=== PATIENT | female | born 1960 | race Caucasian/White ===

== ENCOUNTER 2021-02-17 09:14 | Emergency (ER) | payer OTHER, SELFPAY ==
--- NOTE | 2021-02-17 09:21 | ED.DENTAL ---
HPI - Dental/Oral General Chief complaint: Dental/Oral Stated complaint: Abscessed tooth Time Seen by Provider: 02/17/21 09:21 Source: patient and RN notes reviewed History of Present Illness HPI Narrative: Patient is 60-year-old female who presents the urgent care with complaints of left lower jaw swelling/dental pain. Patient states that she has noticed the pain off and on for approximately 1 week and woke up with the swelling this morning. Patient states that she has not had any fever, chills, nausea, vomiting. States that she has not taken anything [id number] for her symptoms. Patient has a poor dental health and has not seen a dentist in many years. No other acute complaints. No acute distress noted. Patient aware of the plan of care. Some parts of this dictation were generated by voice recognition software and may contain typographical and/or grammatical inaccuracies. Related Data Home Medications Medication Instructions Recorded Confirmed amlodipine 10 mg PO DAILY 02/17/21 02/17/21 atorvastatin 80 mg PO DAILY 02/17/21 02/17/21 bupropion HCl 150 mg PO QAM 02/17/21 02/17/21 buspirone 30 mg PO BID 02/17/21 02/17/21 carvedilol 25 mg PO BID 02/17/21 02/17/21 levothyroxine [Euthyrox] 25 mcg PO DAILY 02/17/21 02/17/21 mirtazapine 7.5 mg PO DAILY 02/17/21 02/17/21 prazosin 2 mg PO HS 02/17/21 02/17/21 Allergies Allergy/AdvReac Type Severity Reaction Status Date / Time No Known Allergies Allergy Verified 02/17/21 09:30 Review of Systems Review of Systems: CONSTITUTIONAL: Denies fever, chills, or sweats. EYES: Denies visual changes, redness, or discharge. ENT: Denies rhinorrhea, congestion, sore throat, or otalgia. Reports of left lower jaw swelling and left lower dental pain CARDIOVASCULAR: Denies chest pain, palpitations, or edema. RESPIRATORY: Denies cough or dyspnea. GASTROINTESTINAL: Denies abdominal pain, nausea, vomiting, or diarrhea. GENITOURINARY: Denies dysuria or hematuria. SKIN: Denies rash or itching. MUSCULOSKELETAL: Denies back pain, joint pain, or myalgia. NEUROLOGIC: Denies headache, numbness, or weakness. All other systems reviewed are negative, except as documented in HPI. PMFSH Comments At the time of my signature, I reviewed and agree with the nursing past medical, surgical, social, and family history. There is no relevant family history pertinent to the patient complaint. Exam Narrative: GENERAL: This is a well-nourished, well-developed patient, in no apparent distress. HEAD: normocephalic, atraumatic. EYES: PERRL. Sclera clear/white. Vision is grossly intact. EARS: External ears normal NOSE: External nose normal with no obvious nasal discharge, nares without redness, no rhinorrhea. THROAT: Mucous membranes moist, posterior pharynx clear. DENTAL: Very poor dental hygiene. Many carious lesions and avulsed teeth at the gumline. Missing dentition throughout. Moderate left lower jaw edema with notable erythema and edema to the left lower quadrant surrounding avulsed dentition. NECK: Neck supple CARDIOVASCULAR: Regular rate and rhythm without murmurs, gallops, or rubs. RESPIRATORY: Clear to auscultation. Breath sounds equal bilaterally. No wheezes, rales, or rhonchi. SKIN: warm, intact with no suspicious lesions or rash, good texture and turgor. NEURO: awake, alert, and oriented to person, place and time. There were no obvious focal neurologic abnormalities. EXTREMITIES: No clubbing, cyanosis, or edema. Course Vital Signs Vital signs: Vital Signs Temperature 98.3 F 02/17/21 09:26 Pulse Rate 105 H 02/17/21 09:26 Respiratory Rate 20 02/17/21 09:26 Blood Pressure 179/117 H 02/17/21 09:26 Pulse Oximetry 98 02/17/21 09:26 Temperature 98.3 F 02/17/21 09:26 Pulse Rate 105 H 02/17/21 09:26 Respiratory Rate 20 02/17/21 09:26 Blood Pressure 179/117 H 02/17/21 09:26 Pulse Oximetry 98 02/17/21 09:26 Reviewed-patient is informed that they may have pre-hypertensi
[2021-02-17 09:26] VITALS: BP 179/117; PULSE 105; RESP 20; TEMP 36.8; O2SAT 98
== END 2021-02-17 09:43 | disposition home or self-care (01) ==
PROVIDERS: Emergency Provider Nurse Practitioner Family; PCP Nurse Practitioner Family
DX: K04.7 Periapical abscess without sinus (principal); E78.00 Pure hypercholesterolemia, unspecified; I10 Essential (primary) hypertension; E03.9 Hypothyroidism, unspecified; F41.9 Anxiety disorder, unspecified; F32.A Depression, unspecified; F43.10 Post-traumatic stress disorder, unspecified; X58.XXXA Exposure to other specified factors, initial encounter
CPT/HCPCS: 99213; G0463

== ENCOUNTER 2022-08-21 15:39 | Emergency (ER) | payer OTHER, SELFPAY ==
--- NOTE | ~2022-08-21 | XR_ITS ---
EXAMINATION: XR knee LT min 4V DATE: 08/21/2022 16:37 INDICATION: Generalized left knee pain TECHNIQUE: Anteroposterior, 2 oblique and crosstable lateral views of the left knee were obtained COMPARISON: None. FINDINGS: Alignment is normal. No fracture. No joint effusion/layering lipohemarthrosis. Nonspecific mild subc utaneous edema anterior to the left knee and proximal calf. IMPRESSION: 1. No left knee joint effusion or osseous abnormality. Reviewed, dictated and finalized at location A.
[2022-08-21 16:02] VITALS: BP 130/95; PULSE 88; RESP 18; TEMP 36.8; O2SAT 96
--- NOTE | 2022-08-21 16:21 | PC.NURSE ---
Pt complaining of pain and swelling to left knee, swelling down leg with pitting edema of +2, pt also states she has a little pain on her right knee, also has pitting edema of + 1 to the right leg, denies any other symptoms, no injuries.
--- NOTE | 2022-08-21 16:30 | ED.GENADULT ---
HPI - General Adult General Chief complaint: Extremity Injury, Lower Stated complaint: Left Knee/Leg Pain Source: patient Mode of arrival: ambulatory Limitations: no limitations History of Present Illness HPI narrative: Patient presents for evaluation of pain in the left knee for the last 3 days. She cannot identify any recent injury. She states she does go up and down steps frequently at home. She went to sit down in her living room when she first experienced the pain. Pain has been fairly constant since that time. She rates the pain 3/10 severity. She feels that in the medial anterior aspect of the left knee in the posterior aspect of the knee as well. She states her left lower leg has been swollen. She denies any calf pain. She is not on exogenous estrogen. No personal history of DVT or PE. She does smoke approximately 10 cigarettes per day. She is not taking any medication to assist with her pain Related Data Home Medications Medication Instructions Recorded Confirmed amlodipine 10 mg tablet 10 mg PO DAILY 02/17/21 08/21/22 atorvastatin 80 mg tablet 80 mg PO DAILY 02/17/21 08/21/22 bupropion HCl 150 mg 24 hr tablet, 150 mg PO QAM 02/17/21 08/21/22 extended release buspirone 30 mg tablet 30 mg PO BID 02/17/21 08/21/22 carvedilol 25 mg tablet 25 mg PO BID 02/17/21 08/21/22 levothyroxine 25 mcg tablet 25 mcg PO DAILY 02/17/21 08/21/22 (Euthyrox) mirtazapine 7.5 mg tablet 7.5 mg PO DAILY 02/17/21 08/21/22 prazosin 2 mg capsule 2 mg PO HS 02/17/21 08/21/22 amlodipine 10 mg tablet 10 mg BID 08/21/22 08/21/22 aspirin 325 mg tablet 325 mg PO DAILY 08/21/22 08/21/22 fluoxetine 08/21/22 08/21/22 hydroxyzine pamoate 08/21/22 levothyroxine 100 mcg capsule 100 mcg PO DAILY 08/21/22 08/21/22 lisinopril 08/21/22 Allergies Allergy/AdvReac Type Severity Reaction Status Date / Time No Known Allergies Allergy Verified 08/21/22 16:09 Review of Systems Review of Systems: CONSTITUTIONAL: Denies fever, chills, or sweats. EYES: Denies visual changes, redness, or discharge. ENT: Denies rhinorrhea, congestion, sore throat, or otalgia. CARDIOVASCULAR: Denies chest pain, palpitations, or edema. RESPIRATORY: Denies cough or dyspnea. GASTROINTESTINAL: Denies abdominal pain, nausea, vomiting, or diarrhea. GENITOURINARY: Denies dysuria or hematuria. SKIN: Denies rash or itching. MUSCULOSKELETAL: Reports pain in the left knee with associated swelling in the left lower leg NEUROLOGIC: Denies headache, numbness, dizziness, or weakness. PSYCHIATRIC: Denies anxiety or depression. [facility] Past Medical History Medical History Hyperlipidemia Hypertension Hypothyroidism Surgical History Surgical History No pertinent past surgical history Family History Family History Mother Family history non-contributory Social History Social History Smoking packs per day: 0.5 Smoking cigarettes per day: 10.0 Smoking status: Current every day smoker Substance use: never Living arrangements: with family Gender identity (if verbalized by the patient): Female Sexual Orientation (if Verbalized by the Patient): Straight or Heterosexual Spiritual care concerns: No Exam Narrative: GENERAL: Well-appearing, well-nourished, and in no acute distress. HEAD: Normocephalic, atraumatic. EYES: PERRLA and EOMI. ENT: Nares clear, no rhinorrhea or epistaxis. Mucous membranes moist. Oropharynx without tonsillar hypertrophy exudate or other lesions. Bilateral TMs pearly tripathi nonbulging NECK: Supple. No adenopathy or masses. No carotid bruits or JVD CHEST: Clear to auscultation. No respiratory distress. No wheezes rales or rhonchi HEART: Regular rate and rhythm. No murmur heard. Normal periphe
== END 2022-08-21 17:15 | disposition short-term general hospital (02) ==
PROVIDERS: Emergency Provider Nurse Practitioner
DX: M79.89 Other specified soft tissue disorders (principal); F17.210 Nicotine dependence, cigarettes, uncomplicated; E78.5 Hyperlipidemia, unspecified; I10 Essential (primary) hypertension; E03.9 Hypothyroidism, unspecified; Z79.82 Long term (current) use of aspirin
CPT/HCPCS: 73564; 99213; G0463